=== PATIENT | female | born 1965 | race Caucasian/White ===

== ENCOUNTER 2020-12-24 13:14 | Outpatient (RCR) | payer MEDICAID, SELFPAY ==
--- NOTE | 2020-12-24 14:43 | REHOPWC ---
SEATING EVALUATION NOTIFICATION This is to notify provider that Nathaly BoyceKelly Cole participated in a power mobility device evaluation today. Recommendations were made specific to patient's needs. Seating Assessment documentation has been completed for detailed information on required equipment. The mobility device provider for this case is Paulo from [employer]. Please note that no further care plan will be developed on this account. [facility]. Please review, sign, date and return this discharge summary ROBIN. I have been updated about the patient's current status and I agree with discharge from the above service at this time. Referring Physician Date
== END 2021-03-13 09:45 | disposition home or self-care (01) ==
LOC: ANHPT 13:14
DX: M87.859 Other osteonecrosis, unspecified femur (principal); M54.50 Low back pain, unspecified; M25.511 Pain in right shoulder
CPT/HCPCS: 97163